=== PATIENT | female | born 1980 | race African-American/Black ===

== ENCOUNTER 2017-02-01 14:25 | Emergency (ER) | payer OTHER ==
[~2017-02-01] VITALS: Ht 175.3 cm; Wt 72.7 kg
[2017-02-01] MEDS ORDERED: CITA20TA4 (14:43)
[2017-02-01] MEDS ORDERED: AMPHET/DEXTR PO (14:43)
[2017-02-01] MEDS ORDERED: ESTR1TAB (14:43)
[2017-02-01] MEDS ORDERED: ZOFR4TAB3 PO (15:22)
[2017-02-01] MEDS ORDERED: ZANT300T PO (15:23)
[2017-02-01] MEDS ORDERED: ONDANSETRON 4 MG ORAL DISINTEGRATING TAB (S0181) PO ONE (15:30)
[2017-02-01 16:05] VITALS: BP 120/67
== END 2017-02-01 16:06 | disposition home or self-care (01) ==
LOC: M ED 14:25
DX: A08.4 Viral intestinal infection, unspecified (principal); F90.9 Attention-deficit hyperactivity disorder, unspecified type

== ENCOUNTER → 2017-02-23 | Outpatient (REF) | payer OTHER | LOC: M LAB REF 17:06 | DX: R30.0 Dysuria (principal) ==

== ENCOUNTER → 2017-07-14 | Outpatient (CLI) | payer OTHER | LOC: M WUC 14:53 | DX: M25.541 Pain in joints of right hand (principal) ==

== ENCOUNTER → 2018-01-19 | Outpatient (CLI) | payer OTHER ==
[2018-01-19 15:47] LABS: FREE T4 0.88 NG/DL (0.76-1.46)
[2018-01-19 15:48] LABS: TOTAL 25(OH) VITAMIN D 21.4 NG/ML (30.0-100.0)
== END ==
LOC: M WUC 14:07
DX: R53.83 Other fatigue (principal)
CPT/HCPCS: 84443

== ENCOUNTER → 2018-03-02 | Outpatient (CLI) | payer OTHER ==
[~2018-03-02] MED LIST: AMPHET/DEXTR PO; CITA20TA4; ESTR1TAB; ZANT300T9 PO; ZOFR4TAB14 PO
[2018-03-02 17:54] LABS: ALBUMIN 4.1 GM/DL (3.2-5.2); ALT/SGPT 24 U/L (12-78); BILIRUBIN,TOTAL 0.7 MG/DL (0.2-1.0); BLOOD UREA NITROGEN 18 MG/DL (7-18); CALCIUM LEVEL 9.6 MG/DL (8.5-10.1); CARBON DIOXIDE LEVEL 28 MEQ/L (21-32); CHLORIDE LEVEL 105 MEQ/L (98-107); CREATININE FOR GFR 1.03 MG/DL (0.55-1.30); GLOMERULAR FILTRATION RATE > 60.0 (>60); GLUCOSE, FASTING 88 MG/DL (70-100); POTASSIUM SERUM 4.5 MEQ/L (3.5-5.1); RHEUMATOID FACTOR QUANT 11.5 IU/ML (<15.0); SODIUM LEVEL 140 MEQ/L (136-145); TOTAL PROTEIN 7.4 GM/DL (6.4-8.2)
[2018-03-02 18:22] LABS: HEMOGLOBIN A1c 5.3 %
[2018-03-06 00:07] LABS: ANTINUCLEAR ANTIBODIES DIRECT Negative (Negative); CYCLIC CITRULLINATED PEPTIDE 8 units (0-19)
== END ==
LOC: M WUC 13:24
PROVIDERS: ATTEND Family Medicine
DX: E55.9 Vitamin D deficiency, unspecified (principal); M25.50 Pain in unspecified joint; Z13.29 Encounter for screening for other suspected endocrine disorder; Z79.899 Other long term (current) drug therapy

== ENCOUNTER 2018-04-23 13:39 | Emergency (ER) | payer OTHER ==
[~2018-04-23] VITALS: Ht 175.3 cm; Wt 81.8 kg
[2018-04-23] MEDS ORDERED: AMPHET/DEXTR (13:55)
[2018-04-23] MEDS ORDERED: FLUO10TA2 (13:55)
[2018-04-23] MEDS ORDERED: ACET30TAB PO (16:47)
[2018-04-23] MEDS ORDERED: AMOX875T PO (16:47)
[2018-04-23 16:53] VITALS: BP 136/75
== END 2018-04-23 16:54 | disposition home or self-care (01) ==
LOC: M ED 13:39
DX: S09.21XA Traumatic rupture of right ear drum, initial encounter (principal); X58.XXXA Exposure to other specified factors, initial encounter; Y92.098 Other place in other non-institutional residence as the place of occurrence of the external cause; F90.9 Attention-deficit hyperactivity disorder, unspecified type; Z79.899 Other long term (current) drug therapy

== ENCOUNTER 2018-08-05 15:26 | Emergency (ER) | payer OTHER ==
[~2018-08-05] VITALS: Ht 175.3 cm; Wt 84.1 kg
[~2018-08-05 15:26] MED LIST changes: +ACET-716 PO; +AMOX875T PO; +AMPHET/DEXTR; -CITA20TA4; +CITA20TA6; +FLUO10TA2
[2018-08-05] MEDS ORDERED: PROZ10CA7 PO (15:35)
[2018-08-05] MEDS ORDERED: AMPH15CA (15:35)
[2018-08-05] MEDS ORDERED: LIDOCAINE 1% MDV 20ML VIAL SC ONE (16:15)
[2018-08-05 16:44] VITALS: BP 120/70
== END 2018-08-05 16:49 | disposition home or self-care (01) ==
LOC: M ED 15:26
DX: S81.811A Laceration without foreign body, right lower leg, initial encounter (principal); W01.198A Fall on same level from slipping, tripping and stumbling with subsequent striking against other object, initial encounter; Y92.091 Bathroom in other non-institutional residence as the place of occurrence of the external cause; Y93.E1 Activity, personal bathing and showering; Y99.9 Unspecified external cause status; Z79.899 Other long term (current) drug therapy

== ENCOUNTER → 2018-08-09 | Outpatient (CLI) | payer OTHER ==
[~2018-08-09] MED LIST changes: +AMPH15CA; +PROZ10CA7 PO
--- NOTE | 2018-08-09 17:00 | REP ---
Lumbar spine series: Seven views including flexion extension lateral views. History: Sacral coccygeal disorder. No comparison study. Findings: Lumbar vertebral body heights are preserved. Alignment is normal. Flexion/extension lateral views show no subluxation or instability. Disc spaces are maintained. There is no evidence of spondylolysis or spondylolisthesis. Facets are unremarkable. Psoas margins are symmetric. Sacrum and SI joints appear intact. Impression: Unremarkable lumbar spine radiographs. Electronically Signed by Rick Kay MD 08/09/2018 04:51 P
--- NOTE | 2018-08-09 17:25 | REP ---
Left hip series: Two views. History: Sacrococcygeal disorder. Left hip pain. Findings: AP and frog-leg views of the left hip demonstrate mild osteoarthritic spurring of the inferior margin of the femoral head. Head and neck junction morphology is otherwise normal. No bony erosive changes seen. Periarticular soft tissues are unremarkable. Impression: Mild osteoarthritic spurring. Electronically Signed by Rick Kay MD 08/09/2018 07:54 P
== END ==
LOC: M SMT 15:27
PROVIDERS: ATTEND Family Medicine
DX: M54.5 Low back pain (principal); M16.12 Unilateral primary osteoarthritis, left hip

== ENCOUNTER → 2019-06-24 | Outpatient (CLI) | payer OTHER ==
[~2019-06-24] MED LIST changes: +ADDE25CA PO; -AMPH15CA; +AMPH1CAP15
== END ==
LOC: M LABSMTC 09:35
PROVIDERS: ATTEND Anesthesiology
DX: Z11.59 Encounter for screening for other viral diseases (principal); Z01.818 Encounter for other preprocedural examination

== ENCOUNTER 2019-06-26 08:34 | Day surgery (SDC) | payer OTHER ==
[~2019-06-26] VITALS: Ht 177.8 cm; Wt 83.9 kg
[~2019-06-26 08:34] MED LIST changes: +LR 1,000 ML IV ONE; +ceFAZolin SOD 2 GM in IV 1 EA IV ONE
[2019-06-26] MEDS ORDERED: LIDOCAINE 2% 100MG/5ML SDV (FOR ANES.) As Ordered ONE (10:22)
[2019-06-26] MEDS ORDERED: fentaNYL 250 MCG/5 ML INJECTION (J3010) As Ordered ONE (10:22)
[2019-06-26] MEDS ORDERED: ROCURONIUM BROMIDE 50 MG/5 ML VIAL As Ordered ONE (10:22)
[2019-06-26] MEDS ORDERED: propofoL 200 MG/20 ML VIAL As Ordered ONE ×2 (10:22→11:46)
[2019-06-26] MEDS ORDERED: MIDAZOLAM INJ 2MG/2ML VIAL (J2250 PER 1MG) As Ordered ONE ×2 (10:23→10:24)
[2019-06-26] MEDS ORDERED: fentaNYL 100 MCG/2 ML INJECTION (J3010) As Ordered ONE (10:24)
[2019-06-26] MEDS ORDERED: MIDAZOLAM INJ 2MG/2ML VIAL (J2250 PER 1MG) IV ONE (11:00)
[2019-06-26] MEDS ORDERED: fentaNYL 100 MCG/2 ML INJECTION (J3010) IV ONE (11:00)
[2019-06-26] MEDS ORDERED: BUPIVACAINE HCL 0.5% 30 ML VIAL As Ordered ONE (11:10)
[2019-06-26] MEDS ORDERED: DESFLURANE 240 ML INHALANT As Ordered ONE (11:47)
[2019-06-26] MEDS ORDERED: ePHEDrine SULFATE 25 MG/5 ML(5MG/ML) SYRINGE As Ordered ONE (12:02)
[2019-06-26] MEDS ORDERED: ONDANSETRON 4MG/2ML VIAL As Ordered ONE (12:54)
[2019-06-26] MEDS ORDERED: ACETAMINOPHEN 1000MG 100ML IV BTL (OFIRMEV) (J0131 PER 10MG) As Ordered ONE (12:54)
[2019-06-26] MEDS ORDERED: dexameTHASONE 4 MG/ML 1ML VIAL (J1100 PER 1MG) As Ordered ONE (12:54)
[2019-06-26] MEDS ORDERED: KETOROLAC 60 MG/2 ML VIAL As Ordered ONE (12:54)
[2019-06-26] MEDS ORDERED: oxyCODONE 5MG TAB As Ordered ONE (13:56)
[2019-06-26] MEDS ORDERED: fentaNYL 100 MCG/2 ML INJECTION (J3010) IV PRN (14:00)
[2019-06-26] MEDS ORDERED: LR 1,000 ML IV SCH ×2 (14:00→14:30)
[2019-06-26] MEDS ORDERED: ONDANSETRON 4MG/2ML VIAL IV PRN (14:00)
[2019-06-26] MEDS ORDERED: oxyCODONE 5MG TAB PO PRN (14:00)
[2019-06-26 15:15] VITALS: BP 116/62
--- NOTE | 2019-06-26 16:12 | REP ---
C-ARM VIEWS, RIGHT FOOT: Five C-arm views right foot performed during bunionectomy show surgical defect in the distal 1st metatarsal. There are two metallic screws placed. The structures appear well aligned. FLUOROSCOPY TIME: 57 seconds. Electronically Signed by Emanuel Medina MD 06/26/2019 04:14 P
--- NOTE | 2019-06-29 14:02 | RO ---
DATE OF PROCEDURE: 06/26/2019 PREOPERATIVE DIAGNOSIS: Right hallux valgus deformity. POSTOPERATIVE DIAGNOSIS: Right hallux valgus deformity. PROCEDURE: Right bunionectomy with scarf osteotomy and medial eminence resection. SURGEON: Dr. Astrid Post PROCESS ASSISTANT: LUIGI ANESTHESIA: General endotracheal with popliteal nerve block. ESTIMATED BLOOD LOSS: 25 mL. COMPLICATIONS: None. IMPLANTS: Synthes 2.0 screw times two. INDICATIONS: Lisa Barahona is a 38-year-old female who has longstanding pain and deformity due to a right bunion deformity. She has failed conservative measures. Risks and benefits of surgery were discussed with the patient in detail and include, but are not limited to, infection, damage to nerves and blood vessels, continued pain and stiffness, need for additional procedures. Informed consent was obtained in the office. DESCRIPTION OF PROCEDURE: Patient was met in the preoperative holding area where her right lower extremity was marked as the corrective operative site. She underwent a popliteal nerve block by the anesthesia team. She was taken to the operating room and placed in the supine position on the operating room table. Bony prominences were well padded. A well padded tourniquet was placed on the right upper thigh. Her right lower extremity was then prepped and draped in the normal sterile fashion. She received antibiotics within 60 minutes prior to incision. An official time-out was held where the correct patient, operative site and operative procedure were verified. An incision was made in the first web space. Careful dissection to the level of the metatarsophalangeal joint (MTP) joint was performed. The metatarsal sesamoid ligament was incised. The adductor was left in place. I was able to obtain adequate correction following this lateral release with the toe in varus and plantar flexion. Next, incision was made over the medial aspect of the great toe and first metatarsal. The dorsal sensory nerve was protected throughout the case and was easily identified. Capsule was incised. There was only mild osteoarthritis of the metatarsal head. The medial eminence was excised with a 38 saw. Next, two K-wires were placed to eitan my osteotomy site. These were confirmed using the mini C-arm and were found to be satisfactory. The long oblique limb of my scarf osteotomy was incised using a 38 saw and then the vertical limbs were completed using a 39 saw. I was able to gain good translation at the osteotomy site and satisfactory correction of the hallux valgus deformity. This was pinned in place with 0.062 K-wire. Correction was confirmed on anteroposterior (AP), oblique and lateral views using the C-arm. It was held in place with a point of reduction clamp as well and then two 2.0 mm lag screws were placed across the osteotomy site. Finally, remaining medial eminence was excised with the 38 saw. Copious irrigation was performed. The capsule was redundant and any redundant tissue was excised. It was then repaired using 2.0 FiberWire in a horizontal mattress fashion and was reinforced also with #0 Vicryl. There was good correction of the toe at this point. I again irrigated. Soft tissues were closed with #3-0 Vicryl and the skin was closed with #3-0 nylon. Final x-rays were performed and found to be satisfactory using the mini C-arm in AP, oblique and lateral view. A sterile dressing was applied, followed by a well-padded splint. Patient was then extubated and transferred to the recovery room in stable condition. PLAN: The patient will be non-weightbearing in the right lower extremity for around 4 weeks. I will see her back in 2 weeks for advancement into a boot. She will be on aspirin for deep venous thrombosis (DVT) prophylaxis.
== END 2019-06-26 15:20 | disposition home or self-care (01) ==
LOC: M SDC 08:34
PROVIDERS: ATTEND Orthopaedic Surgery
DX: M20.11 Hallux valgus (acquired), right foot (principal); F90.9 Attention-deficit hyperactivity disorder, unspecified type; F32.9 Major depressive disorder, single episode, unspecified; F41.9 Anxiety disorder, unspecified; Z79.899 Other long term (current) drug therapy
CPT/HCPCS: 28299; 64445; 76000; C1713; J0131; J0690; J1100; J1885; J2250; J2405; J3010

== ENCOUNTER → 2019-09-10 | Outpatient (CLI) | payer OTHER ==
[~2019-09-10] MED LIST changes: -LR 1,000 ML IV ONE; -ceFAZolin SOD 2 GM in IV 1 EA IV ONE
[2019-09-11 11:10] LABS: HEPATITIS B CORE ANTIBODY IGM NEGATIVE (NEGATIVE); HEPATITIS B SURFACE ANTIBODY NEGATIVE (POSITIVE); HEPATITIS B SURFACE ANTIGEN NEGATIVE (NEGATIVE)
[2019-11-06 09:32] LABS: HERPES ZOSTER, VARICELLA IgG SEE SEPARATE REPORT; HERPES ZOSTER, VARICELLA IgM SEE SEPARATE REPORT; MUMPS VIRUS IgG ANTIBODY SEE SEPARATE REPORT (NEGATIVE); RUBEOLA IgG ANTIBODY SEE SEPARATE REPORT
== END ==
LOC: M WUC 15:04
PROVIDERS: ATTEND Physician Assistant
DX: Z01.84 Encounter for antibody response examination (principal)

== ENCOUNTER → 2019-10-03 | Outpatient (CLI) | payer OTHER | LOC: M LABSMTC 11:00 | PROVIDERS: ATTEND Orthopaedic Surgery | DX: Z11.59 Encounter for screening for other viral diseases (principal) ==